=== PATIENT | female | born 1960 | race Caucasian/White ===

== ENCOUNTER 2016-05-13 15:17 | Inpatient (IN) | payer OTHER ==
[~2016-05-13] VITALS: Ht 167.6 cm; Wt 37.3 kg
[~2016-05-13 15:17] MED LIST: ATIVAN0.5 MG PO; ATIVAN1 MG OR; BACTRIM DS TABL1 TAB PO; CATAPRES0.1 MG PO; CATAPRES0.2 MG PO; CIPRO250 MG PO; CLONAZEPAM0.125 MG/T OR; COMBIVENT RESPIM4 GM INH; DESERYL100 MG PO; DESYREL50 MG OR; DIFLUCAN100 MG PO; DILANTIN OR; DILANTIN100 MG PO; DUONEB 2.5-0.5 M3 ML UPD; ELAVIL10 MG OR; ELAVIL25 MG PO; IPRAT-ALBUT 0.5-3 ML UPD; LEVAQUIN500 MG PO; LISINOPRIL2.5 MG OR; NEURONTIN 300300 MG PO; NORVASC10 MG PO; NYSTATIN ORAL SU5 ML PO; OMNICEF300 MG PO; PREDNISONE20 MG PO; PRINIVIL20 MG PO; RYBIX ODT50 MG PO; SPORANOX100 MG PO; STERAPRED DS 1210 MG PO; TIVICAY50 MG PO; TRUVADA 200 MG1 EACH PO; ULTRAM50 MG PO; VENTOLIN HFA18 GM INH
--- NOTE | 2016-05-13 15:45 | NUR ---
IV SITED TO LEFT UPPER ARM X2 STICKS,ASEPTIC TECH USED.22G.ASSESSMENT PER ADMIT PACK.FALL PREVENTION INITIATED.
[2016-05-13 15:57] VITALS: BP 146/112; Ht 167.6 cm; Wt 37.3 kg
--- NOTE | 2016-05-13 18:00 | NUR ---
IV PULLED OUT BY PT,CATH TIP INTACT.SHE IS VERY ANXIOUS AND SAYS SHE CANT VOID,BUT SMALL AMOUNTS OF VERY DARK CONCENTRATED URINE NOTED ON BED.16 CROATIAN LUCAS CATHETER INSERTED USING BOOM CRANE OPERATOR.150CC OF VERY CONCENTRATED URINE NOTED IN BAG.MEDS ORDERED PER MAR FOR ANXIETY.DOOR OPEN TO MONITOR.IV RESITED TO RIGHT FOREARM X1 STICK USING ASEPTIC TECH USED 22G.
[2016-05-13 21:18] VITALS: BP 134/95
--- NOTE | 2016-05-14 00:49 | NUR ---
MORPHINE BOLUS OF 2MG GIVEN AND INCREASE CONTINUOUS RATE TO 1MG/HR
--- NOTE | 2016-05-14 01:11 | NUR ---
PATIENT ATE A FEW BITES OF PUDDING AND DRANK SOME APPLE JUICE. ADDED MESSAGE TO DIETARY FOR A MECHANICAL SOFT DIET. PATIENT HAS ALTERED MENTAL STATUS AND IS ABLE TO COMMUNICATE BASIC NEEDS
--- NOTE | 2016-05-14 02:05 | NUR ---
PATIENT SLEEPING IN LOW FOWLERS POSITION. NO VISIBLE SIGNS OF DISTRESS. PATIENT'S BED IN THE LOWEST POSITION AND CALL LIGHT WITHIN REACH.
--- NOTE | 2016-05-14 08:30 | NUR ---
PATIENT RECEIVED IN HIGH SHEPHERD POSITION EATING BREAKFAST WITH ASSIST FROM NURSE AID. IV TO RIGHT AC PATENT. IVF AND MORPHINE SENIOR TECHNICAL PROGRAM MANAGER INFUSING WITHOUT DIFFICULTY. SIDE RAILS UP X2. BED IN LOW POSITION. CALL LIGHT IN REACH. BED ALARM ON.
[2016-05-14 08:44] VITALS: BP 126/91
[2016-05-14 12:02] VITALS: BP 149/99
--- NOTE | 2016-05-14 13:00 | NUR ---
NUTRITION MONITORING & EVAL CHART REVIEWED. COMFORT CARE NOTED. RD FOLLOWING
--- NOTE | 2016-05-14 15:25 | NUR ---
PATIENT RESTLESS AND AGITATED. 1 MG ATIVAN SLOW IVP. SIDE RAILS UP X2. BED IN LOW POSITION. CALL LIGHT IN [facility]. BED ALARM ON.
[2016-05-14 16:50] VITALS: BP 146/105
--- NOTE | 2016-05-14 18:00 | NUR ---
PATIENT IN LEFT LATERAL POSITION RESTING WITH EYES CLOSED. RESPIRATIONS EVEN AND UNLABORED. SIDE RAILS UPX2. BED IN LOW POSITION. CALL LIGHT IN REACH.
--- NOTE | 2016-05-14 20:00 | NUR ---
ASSESSMENT TN FLOWSHEET. BED ALARM BED ACTIVATED. PT TRYING TO CLIMB OUT OF BED ALARM SOUNDING ASSISTED BACK INTO BED RE-ACTIVATED BED ALARM. SR UP X3 CALL LIGHT WITHIN REACH. IV PATENT RT AC OF NS AT 30CC'S/HR. SVP INNOVATION PARTNERSHIPS OF MORPHINE IN USE WITH SETTINGS 1MG CONTINUOUS.O2 ON 2L/M PER NC. SPEECH GARBLED. PJ.
[2016-05-14 21:00] VITALS: BP 150/98
--- NOTE | 2016-05-14 23:45 | NUR ---
RESTLESS PULLED OUT IV PULLS OFF GOWN FREQUENTLY. TRYING TO CLIMB OUT OF BED. RESITED IV TO RT LATERAL ARM #22G X2 ATTEMPTS. RESUMED IV FLUIDS AND PHARMACEUTICAL OFFICER. COMPLETE BED BATH WITH LINENS CHANGED. SR UP X3 CALL LIGHT WITHIN REACH BED ALARM REACTIVATED.
--- NOTE | 2016-05-15 | NUR ---
EYES CLOSED RESPIRATIONS WITH EASE AND UNLABORED.
--- NOTE | 2016-05-15 03:00 | NUR ---
MOANING IF IN PAIN BOLUS OF 2 MG GIVEN PER FORM SETTER/DRIVER MACHINE.
[2016-05-15 05:00] VITALS: BP 140/94
--- NOTE | 2016-05-15 06:12 | NUR ---
RESTING AT THIS TIME.
--- NOTE | 2016-05-15 07:30 | NUR ---
PT TRYING TO CLIMB OUT OF BED CONFUSED ATIVAN 1MG SLOW IVP GIVEN MICHAEL WELL AT PRESENT.IV CONT AT 30CC/HR BAND EDGER IN PROGRESS AT PRESENT.LUCAS CATH IN TACT AND DRAINING YELLOW.IV CONT TO RTFA AT PRESENT AT PRESENT.
[2016-05-15 08:30] VITALS: BP 172/119
--- NOTE | 2016-05-15 09:15 | NUR ---
THRASHING AROUND IN BED AT PRESENT REPOSITIONED CONFUSED LUCAS INTACT AND DRAINING DARK URINE AT PRESENT.
--- NOTE | 2016-05-15 12:06 | NUR ---
PT AGITATED AND PULLING AT TUBES ATIVAN 1MG SLOW IVP GIVEN MICHAEL WELL AT PRESENT.
--- NOTE | 2016-05-15 12:42 | NUR ---
SLEEPING QUIETLY AT PRESENT N/C AT PRESENT.
--- NOTE | 2016-05-15 15:10 | NUR ---
CONFUSED all OVER BED TRYING TO GET OUT.
--- NOTE | 2016-05-15 17:55 | NUR ---
STATUS REMAINS UNCHGD AT PRESENT.
--- NOTE | 2016-05-15 19:57 | NUR ---
PATIENT SLEEPING ON SIDE. NO VISUAL SIGNS OF DISTRESS. PATIENT'S BED IN LOWEST POSITION AND CALL LIGHT WITHIN REACH.
[2016-05-15 21:14] VITALS: BP 156/99
--- NOTE | 2016-05-16 07:51 | NUR ---
PT RESTLESS TRYING TO GET OUT OF BED PULLING AT TUBES LUCAS IV ATIVAN 1 MG SLOW IVP GIVEN.
[2016-05-16 08:43] VITALS: BP 176/102
--- NOTE | 2016-05-16 09:15 | NUR ---
CONT RESTLESS AT INTERVALS .
--- NOTE | 2016-05-16 11:00 | NUR ---
SLEEPING QUIETLY AT PRESENT RESP EVEN AND UNLABORED AT PRESENT.
--- NOTE | 2016-05-16 13:30 | NUR ---
CONT RESTLESS IN BED AT PRESENT SPEECH GRABBLED.
--- NOTE | 2016-05-16 14:30 | NUR ---
VIRI COLBERT PT CLEANED UP REPOSITIONED IN BED AT PRESENT.
--- NOTE | 2016-05-16 14:46 | NUR ---
RESTLESS AT PRESENT ATIVAN 1MG GIVEN SIVP MICHAEL WELL.
--- NOTE | 2016-05-16 16:00 | NUR ---
VIRI COLBERT AT PRESENT PT ROCKING IN BED .
--- NOTE | 2016-05-16 19:25 | NUR ---
RECIEVED [facility] REPORT. PT IS LYING IN BED. PT IS ALERT BUT IS NOT ORIENTED AT THIS TIME. O2 @ 2 PER NASAL CANNULA. IV IS PATENT AND FLUIDS ARE RUNNING PER ORDER. PT STATES PAIN IS 10/10 WITH CONTINUOUS FRAME SAMPLE AND PATTERN SUPERVISOR PUMP. PT IS ABLE TO TURN SELF IN BED FOR COMFORT AND SKIN CARE BUT REQUIRES REMINDING. LUCAS IS DRAINING URINE BY GRAVITY. NO NEEDS ARE VERBALIZED AT THIS TIME. WILL CONTINUE TO MONITOR. SIDE RAILS ARE UP X 2. BED IS IN LOWEST POSITION. BED ALARM IS ON FOR SAFETY. CALL LIGHT IS WITHIN REACH.
--- NOTE | 2016-05-16 20:45 | NUR ---
SHIFT ASSESSMENT COMPLETED. PT STATUS REMAINS UNCHANGED FROM PREVIOUS. NO NEEDS ARE VOICED. WILL MONITOR. SIDE RAILS X 2. BED LOW. BED ALARM ON. CALL LIGHT IN REACH.
[2016-05-16 21:35] VITALS: BP 136/91
[2016-05-17 08:29] VITALS: BP 116/71
--- NOTE | 2016-05-17 08:30 | NUR ---
ASSESSMENT PER FLOW SHEET.PT WITHOUT DISTRESS.SHE IS SEDATED ,BUT OPENS EYES TO VERBAL STIMULI.DOOR OPEN TO MONITOR.CALL LIGHT IN REACH.WITHOUT SIGNS OF PAIN
--- NOTE | 2016-05-17 12:00 | NUR ---
PT CLIMBING OUT OF BED.PULLING AT LUCAS CATHETER.MEDS ORDERED PER JUN. MONITOR
[2016-05-17 12:29] VITALS: BP 68/42
[2016-05-17 16:57] VITALS: BP 119/91
--- NOTE | 2016-05-17 17:00 | NUR ---
FROTHY SPUTUM IN MOUTH AND ON FACE.HOB UP AND PT SUCTIONED.RESP SHALLOW.MONITOR
--- NOTE | 2016-05-17 18:24 | NUR ---
PT WITHOUT CHANGE.RESP SILL SHALLOW.PT WITHOUT SIGNS OF PAIN.CONT PLAN OF CARE
--- NOTE | 2016-05-17 19:40 | NUR ---
RECIEVED SHIFT REPORT. PT IS LYING IN BED. PT RESTING WITH SHALLOW BREATHING. PT REQUIRING ASSISTANCE TURNING IN BED FOR COMFORT AND SKIN CARE. O2 @ 2.5 PER NASAL CANNULA. IV IS PATENT AND FLUIDS ARE RUNNING PER ORDER. LUCAS IS DRAINING URINE BY GRAVITY. PT DOES RESPOND TO STIMULI VERBAL AND TOUCH. WILL CONTINUE TO MONITOR. SIDE RAILS ARE UP X 2. BED IS IN LOWEST POSITION. BED ALARM IS ON FOR SAFETY. CALL LIGHT IS WITHIN REACH.
--- NOTE | 2016-05-17 19:44 | NUR ---
SHIFT ASSESSMENT COMPLETED. PRN SCOPALAMINE PATCH AND ATROPINE DROPS ADMINISTERED PER ORDER. WILL MONITOR. SIDE RAILS X 2. BED LOW. BED ALARM ON. CALL LIGHT IN REACH.
--- NOTE | 2016-05-18 07:15 | NUR ---
RECIEVED PATIENT VIA WALKING ROUNDS, PATIENT RESTING QUIETLY UPON ENTERING ROOM. PATIENT AROUSED TO VOCAL STIMULI. PATIENT'S SPEECH IS GARBLED. TURNED PATIENT FROM HER BACK TO HER RIGHT SIDE POSITIONED WITH A PILLOW, WITH ASSIST FROM SHAWN RODRIGUEZ. BED IN LOWEST POSITION, CALL LIGHT IN REACH. BED RAILS UP X'S 2. PATIENT VERY DROWSY. HOB 40 DEGRESS.
--- NOTE | 2016-05-18 10:00 | NUR ---
PATIENT IS RESTING QUIETLY WITH EYES CLOSED. HOB 40 DEGREES.
[2016-05-18 10:13] VITALS: BP 118/89
--- NOTE | 2016-05-18 16:18 | NUR ---
patient awake, moving around in the bed. moaning. asked for orange juice and water, assisted patient drinking orange juice and water. patient moving around in the bed. appears restless.
--- NOTE | 2016-05-18 20:00 | NUR ---
SHIFT ASSESSMENT COMPLETED. PT STATUS REMAINS UNCHANGED FROM PREVIOUS. WILL MONITOR. SIDE RAILS X 2. BED LOW. BED ALARM ON. CALL LIGHT IN REACH.
--- NOTE | 2016-05-18 20:05 | NUR ---
RECIEVED SHIFT REPORT. PT IN BED WITH SHALLOW BREATHING. PT OCCASIONALLY MOANS. FREELANCE INTERPRETER/TRANSLATOR IN PLACE FOR COMFORT MEASURES. PT REQUIRES ASSISTANCE TURNING IN BED FOR COMFORT AND SKIN CARE. O2 @ 2.5. WILL CONTINUE TO MONITOR. SIDE RAILS ARE UP X 2. BED IS IN LOWEST POSITION. BED ALARM IS ON FOR SAFETY. CALL LIGHT IS IN REACH.
[2016-05-18 20:59] VITALS: BP 140/77
[2016-05-19 07:44] VITALS: BP 122/87
--- NOTE | 2016-05-19 20:00 | NUR ---
ASSESSMENT PER FLOWSHEET. LETHARGIC. AROUSES TO TOUCH AND NAME MUMBLES WORDS. TEMP ELEVATED TO 103.1 (AX) TYLENOL SUPP. 650MG GIVEN FOR TEMP MEASURES. LUCAS TO BEDSIDE DRAINAGE. WITH DARK HECTOR URINE NOTED. IV PATENT RT FOREARM OF NS AT 30CC'S/HR SITE CLEAR FOREST LANDSCAPE ECOLOGY PROFESSOR OF MORPHINE INFUSING CONTINUOUSLY AT 2MG/HR.O2 ON 3L/M PER NC.
[2016-05-19 21:00] VITALS: BP 142/83
--- NOTE | 2016-05-19 21:27 | NUR ---
REPOSITIONED IN BED SR UP X2 CALL LIGHT WITHIN REACH.BED ALARM ON.
--- NOTE | 2016-05-19 23:00 | NUR ---
LETHARGIC REPOSITIONED IN BED. STAGE 2 PRESSURE SORE NOTED TO COCCYX. HEART SHAPED DUODERM APPLIED TO SITE TURNED TO LEFT SIDE.
--- NOTE | 2016-05-20 00:03 | NUR ---
REPOSITIONED IN BED. SR UP X2 CALL LIGHT WITHIN REACH REMAINS LETHARGIC.
--- NOTE | 2016-05-20 01:22 | NUR ---
MOANING IF IN PAIN. BOLUS 2 MG GIVEN PER LICENSING REGISTRATION EXAMINER PUMP.TEMP DOWN TO 99.
[2016-05-20 01:30] VITALS: BP 90/66
--- NOTE | 2016-05-20 03:00 | NUR ---
RESPIRATIONS REMAINS LABORED. PT REMAINS LETHARGIC. COMPLETE BED BATH WITH LINENS CHANGED. SUCTIONED ORALLY WITH YAUNKER TUBE WHITE SECRETIONS NOTED.
[2016-05-20 05:00] VITALS: BP 119/85
--- NOTE | 2016-05-20 06:21 | NUR ---
TEMP ELEVATED TO 102. TYLENOL SUPP.650MG GIVEN FOR TEMP MEASURES.
--- NOTE | 2016-05-20 07:30 | NUR ---
LAYING QUIETLY IN BED ON LEFT SIDE COOL CLOTH TO HEAD AT PRESENT COLOR MOTTLED AND WARM TO TOUCH AT PRESENT LUCAS CATH IN TACT AND DRAINING DARK YELLOW URINE AT PRESENT REPOSITIONED FOR COMFORT AT PRESENT.
[2016-05-20 07:57] VITALS: BP 89/67
--- NOTE | 2016-05-20 09:30 | NUR ---
CHECKED SUCTIONED THICK MUCOUS AT PRESENT.
--- NOTE | 2016-05-20 10:24 | NUR ---
PT CHECKED NO VITALS COLOR QURESHI CALL INTO .
--- NOTE | 2016-05-20 11:40 | NUR ---
PT PRONUNCED BY .
--- NOTE | 2016-05-20 11:45 | NUR ---
LUCAS CATH AND IV REMOVED PER HOSPICE NURSE.
--- NOTE | 2016-05-20 12:34 | NUR ---
KASIA HERE WAITING ON HOME TO BUILD AND RELEASE MANAGER BODY AT PRESENT.
--- NOTE | 2016-05-20 12:50 | NUR ---
LEFT VIA FURNEAL HOME YANIQUE.
== END 2016-05-20 12:52 | DRG 951 ==
LOC: D.MS 15:17
PROVIDERS: ADMIT Legal Medicine
DX: Z51.5 Encounter for palliative care (principal)